=== PATIENT | female | born 1970 | race Caucasian/White ===

== ENCOUNTER 2022-12-18 22:24 | Emergency (ER) | payer OTHER ==
[2022-12-18 22:30] VITALS: TEMP 98
[2022-12-18] MEDS ORDERED: BABY ASPIRIN 81 MG CHEW PO ONE (22:41)
[2022-12-18] MEDS ORDERED: MORPHINE SULFATE 4 MG INJ IV ONE (22:42)
[2022-12-18] MEDS ORDERED: Zofran 4 MG/2 ML VIAL IV ONE (22:42)
[2022-12-18] MEDS ORDERED: Zofran 4 MG/2 ML VIAL ONE (22:48)
[2022-12-18] MEDS ORDERED: BABY ASPIRIN 81 MG CHEW ONE (22:49)
[2022-12-18] MEDS ORDERED: MORPHINE SULFATE 4 MG INJ ONE (22:49)
[2022-12-18 23:15] LABS: Absolute Neutrophil Ct (ANC) 9.63 x10^3/uL (1.4-6.9); BASOPHIL % 0.4 % (0.0-0.4); Basophil (Absolute #) 0.07 x10^3/uL (0-0.4); Eosinophil % 0.7 % (0.00-5.0); Eosinophil (Absolute #) 0.11 x10^3/uL (0-0.5); Hematocrit 41.1 % (35-47); Hemoglobin 13.6 g/dL (12.0-16.0); IMMATURE GRAN # 0.05 x10^3u/L (0.00-0.03); IMMATURE GRAN % 0.3 % (0.00-0.4); Lymphocyte (Absolute #) 5.08 x10^3/uL (1.0-4.6); Mean Cell Volume 90.3 fL (78-100); Mean Corpuscular Hemoglobin 29.9 pg (26-32); Mean Corpuscular Hgb Concent. 33.1 g/dL (32-36); Monocyte (Absolute #) 0.92 x10^3/uL (0.0-1.3); Monocytes % 5.8 % (0.0-12.0); Neutrophil % 60.8 % (36.0-66.0); Platelet Count 206 x10^3/uL (150-450); Red Blood Count 4.55 x10^6/uL (4.1-5.4); Red Cell Distribution Width 14.1 % (11.5-14.0); White Blood Count 15.9 x10^3/uL (4.0-10.5)
--- NOTE | 2022-12-18 23:23 | ERPHSYRPT ---
- History of Present Illness Historian: patient, other () Exam Limitations: no limitations Patient Subjective Stated Complaint: pt states "I was walking the dog and my chest started hurting. I think it was my acid reflux so I took my medicine and it still is hurting." Triage Nursing Assessment: pt ambulatory to bed by self with slow steady gait, pt alert and oriented x3, skin pwd, pt c/o center chest pain that started around 2200 while patient was up and walking, pt has hx of GERD and and heart murmur, pt took her omeprazole around 2200, pt rating 8/10 pressure like pain in her chest, pt also c/o L lower arm numbness that started with the chest pain, pt holding chest in triage, in room with patient Physician History: 52 yo WF w mid-sternal chest pain x 1hour. Pain is substernal, burning, and 8/10. She denies radiation but has some associated L shoulder pain. Pain accompanied by nausea/diaphoresis wo vomiting/dyspnea. It is worse w deep breaths. Pt smokes <1ppd but denies CAD-HI/HTN/hyperlipidemia/DM. Cough/coryza /fever are all denied. Timing/Duration: other (1 hour) Activities at Onset: other (Showering) Quality: burning Location: substernal Chest Pain Radiation: no radiation Severity of Pain-Max: severe Severity of Pain-Current: severe Modifying Factors: Improves With: other (Worse w deep breaths) Associated Symptoms: nausea, diaphoresis Prior Chest Pain/Cardiac Workup: no prior chest pain Nitro Today/Relief: no nitro taken today Aspirin Treatment Today: no aspirin today Allergies/Adverse Reactions: No Known Drug Allergies Allergy (Verified 12/18/22 22:25) Home Medications: Omeprazole 20 mg PO DAILY 12/18/22 [History] Hx Tetanus, Diphtheria Vaccination/Date Given: No Hx Influenza Vaccination/Date Given: Yes Hx Pneumococcal Vaccination/Date Given: No Immunizations Up to Date: Yes Travel Risk - International Travel Have you traveled outside of the country in past 3 weeks: No - Coronavirus Screening Are you exhibiting any of the following symptoms?: No Close contact with a COVID-19 positive Pt in past 14-21 Days: No - Vaccine Status Have you recieved a Covid-19 vaccination: Yes Healthcare Consulting Manager: Moderna - Vaccination Dates Date of 2cond Vaccination (if applicable): 2020 - Review of Systems Constitutional: No Symptoms Eyes: No Symptoms Ears, Nose, & Throat: No Symptoms Respiratory: No Symptoms Cardiac: No Symptoms, Chest Pain Abdominal/Gastrointestinal: No Symptoms, Nausea Genitourinary Symptoms: No Symptoms Musculoskeletal: No Symptoms Skin: No Symptoms Neurological: No Symptoms Psychological: No Symptoms Endocrine: No Symptoms Hematologic/Lymphatic: No Symptoms Immunological/Allergic: No Symptoms - Past Medical History GI Medical History: GERD Other Medical History: heart murmur - Past Surgical History Past Surgical History: Yes Neuro Surgical History: No Pertinent History Cardiac: No Pertinent History Respiratory: No Pertinent History Gastrointestinal: No Pertinent History Genitourinary: No Pertinent History Musculoskeletal: No Pertinent History Female Surgical History: No Pertinent History Other Surgical History: cyst removal - Social History Smoking Status: Current every day smoker Exposure to second hand smoke: No Drug Use: none Patient Lives Alone: No - Nursing Vital Signs Nursing Vital Signs: Initial Vital Signs Temperature 98.0 F 12/18/22 22:25 Pulse Rate 78 12/18/22 22:25 Respiratory Rate 18 12/18/22 22:25 Blood Pressure 128/90 12/18/22 22:25 O2 Sat by Pulse Oximetry 100 12/18/22 22:25 Pain Scale Pain Intensity 2 WNL - Physical Exam General Appearance: no apparent distress Eye Exam: PERRL/EOMI, eyes nml inspection Ears, Nose, Throat Exam: normal ENT inspection, TMs normal, pharynx normal, moist mucous membranes Neck Exam: normal inspection, non-tender, supple, full range of motion, No meningismus, No mass, No Brudzinski, No Kernig's Respiratory Exam: normal breath sounds, lungs clear, airway intact, No chest tenderness, No respiratory distress Cardiovascular Exam: regular rate/rhythm, normal heart sounds, normal peripheral pulses, capillary refill <2 sec, No murmur Gastrointestinal/Abdomen Exam: soft, normal bowel sounds, No tenderness Back Exam: normal inspection, normal range of motion, No CVA tenderness, No vertebral tenderness Extremity Exam: normal inspection, normal range of motion Neurologic Exam: alert, oriented x 3, cooperative, monotype caster II-XII nml as tested, normal mood/affect, nml cerebellar function, nml station & gait, sensation nml Skin Exam: normal color, warm, dry, No rash Lymphatic Exam: No adenopathy SpO2 Interpretation: normal SpO2: 100 O2 Delivery: Oxymizer - Course Nursing assessment & vital signs reviewed: Yes EKG Interpreted by Me: RATE (NSR/Rate 82/Normal QT-QTc/Low voltage/No acute ST segment changes/Artifact/EKG #2 NSR/Rate 64/Normal QT-QTc/Low voltage/No acute ST segment changes) - Radiology Exams Chest X-ray Interpretation: Interpreted by me (NAD) Ordered Tests: Active Orders 24 hr Category Date Time Status EKG-ER Only STAT Care 12/19/22 02:10 Completed CHEST 1 VIEW (PORTABLE) Stat Exams 12/18/22 22:36 Taken CBC W DIFF Stat Lab 12/18/22 22:30 Completed CMP Stat Lab 12/18/22 22:30 Completed D-DIMER QUANTITATIVE Stat Lab 12/19/22 00:01 Completed NT PRO BNPII Stat Lab 12/18/22 22:30 Completed PROTIME WITH INR Stat Lab 12/18/22 22:30 Completed PTT Q4H Lab 12/19/22 06:30 Ordered PTT Q4H Lab 12/19/22 10:30 Ordered PTT Q4H Lab 12/19/22 14:30 Ordered PTT Q4H Lab 12/19/22 18:30 Ordered PTT Q4H Lab 12/19/22 22:30 Ordered PTT Stat Lab 12/18/22 22:30 Completed TROPONIN Q4H Lab 12/18/22 22:30 Completed TROPONIN Q4H Lab 12/19/22 01:20 Completed TROPONIN Q4H Lab 12/19/22 06:45 Ordered Medication Summary Generic Name Dose Route Start Last Admin Trade Name Freq PRN Reason Stop Dose Admin Heparin Sodium/Dextrose 25,000 units in 250 mls @ 8.28 mls/hr 12/19/22 02:30 12/19/22 02:40 Heparin 25,000 Units/D5w: Use Order Set Marielos IV 01/18/23 02:29 12 u nits/kg/hr .Q24H WOLF 8.28 mls/hr Administration Protocol 12 UNITS/KG/HR Discontinued Medications Generic Name Dose Route Start Last Admin Trade Name Freq PRN Reason Stop Dose Admin Aspirin 324 mg 12/18/22 22:41 12/18/22 22:50 Aspirin 81 Mg Tab.Chew PO 12/18/22 22:42 324 mg STAT ONE Administration Aspirin Confirm 12/18/22 22:49 Aspirin 81 Mg Tab.Chew Administered 12/18/22 22:50 Dose 324 mg .ROUTE .STK-MED ONE Heparin Sodium (Beef Lung) 5,000 unit 12/19/22 02:19 12/19/22 04:38 Heparin 5000 Units/0.5 Ml 5,000 Unit/0.5 Ml Syr IV 12/19/22 02:20 Not Given STAT ONE Heparin Sodium (Beef Lung) 4,100 unit 12/19/22 02:21 12/19/22 02:38 Heparin 5000 Units/0.5 Ml 5,000 Unit/0.5 Ml Syr 60 unit/kg (4100 unit) 12/19/22 02:22 4,100 unit IV Administration STAT STA Heparin Sodium (Beef Lung) Confirm 12/19/22 02:35 Heparin 5000 Units/0.5 Ml 5,000 Unit/0.5 Ml Syr Administered 12/19/22 02:36 Dose 5,000 unit .ROUTE .STK-MED ONE Morphine Sulfate 4 mg 12/18/22 22:42 12/18/22 22:50 Morphine Sulfate 4 Mg/Ml Injection IV 12/18/22 22:43 4 mg STAT ONE Administration Morphine Sulfate Confirm 12/18/22 22:49 Morphine Sulfate 4 Mg/Ml Injection Administered 12/18/22 22:50 Dose 4 mg .ROUTE .STK-MED ONE Morphine Sulfate 4 mg 12/19/22 04:12 12/19/22 04:38 Morphine Sulfate 4 Mg/Ml Injection IV 12/19/22 04:13 4 mg STAT ONE Administration Morphine Sulfate Confirm 12/19/22 04:37 Morphine Sulfate 4 Mg/Ml Injection Administered 12/19/22 04:38 Dose 4 mg .ROUTE .STK-MED ONE Ondansetron HCl 4 mg 12/18/22 22:42 12/18/22 22:50 Ondansetron Hcl 4 Mg/2 Ml Vial IV 12/18/22 22:43 4 mg STAT ONE Administration Ondansetron HCl Confirm 12/18/22 22:48 Ondansetron Hcl 4 Mg/2 Ml Vial Administered 12/18/22 22:49 Dose 4 mg .ROUTE .STK-MED ONE Lab/Rad Data: Laboratory Result Diagrams 12/18/22 22:30 12/18/22 22:30 Laboratory Results 12/19/22 12/19/22 12/19/22 Range/Units 01:20 00:30 00:01 WBC (4.0-10.5) x10^3/uL RBC (4.1-5.4) x10^6/uL Hgb (12.0-16.0) g/dL Hct (35-47) % MCV (78-100) fL MCH (26-32) pg MCHC (32-36) g/dL RDW (11.5-14.0) % Plt Count (150-450) x10^3/uL MPV (7.5-11.0) fL Gran % (36.0-66.0) % Immature Gran % (Auto) (0.00-0.4) % Nucleat RBC Rel Count (0.00-0.1) % Eos # (Auto) (0-0.5) x10^3/uL Immature Gran # (Auto) (0.00-0.03) x10^3u/L Absolute Lymphs (auto) (1.0-4.6) x10^3/uL Absolute Monos (auto) (0.0-1.3) x10^3/uL Absolute Nucleated RBC (0.00-0.01) x10^3u/L Lymphocytes % (24.0-44.0) % Monocytes % (0.0-12.0) % Eosinophils % (0.00-5.0) % Basophils % (0.0-0.4) % Absolute Granulocytes (1.4-6.9) x10^3/uL Basophils # (0-0.4) x10^3/uL PT (9.4-12.5) SECONDS INR (0.8-3.0) APTT (25.1-36.5) SECONDS D-Dimer 0.22 (0.0-0.50) mg/L Sodium (137-145) mmol/L Potassium (3.5-5.1) mmol/L Chloride (98-107) mmol/L Carbon Dioxide (22-30) mmol/L Anion Gap (5-15) MEQ/L BUN (7-17) mg/dL Creatinine (0.52-1.04) mg/dL Estimated GFR ML/MIN Glucose (74-106) mg/dL Calcium (8.4-10.2) mg/dL Total Bilirubin (0.2-1.3) mg/dL AST (14-36) U/L ALT (0-35) U/L Alkaline Phosphatase (38-126) U/L Troponin I 0.083 H* (0.000-0.034) ng/mL NT-Pro-B Natriuret Pep (<300) pg/mL Serum Total Protein (6.3-8.2) g/dL Albumin (3.5-5.0) g/dL Influenza Type A Ag NEGATIVE (NEGATIVE) Influenza Type B Ag NEGATIVE (NEGATIVE) RSV (PCR) NEGATIVE (NEGATIVE) SARS-CoV-2 (PCR) NEGATIVE (NEGATIVE) Slides for Path Review 12/18/22 12/18/22 12/18/22 Range/Units 22:30 22:30 22:30 WBC (4.0-10.5) x10^3/uL RBC (4.1-5.4) x10^6/uL Hgb (12.0-16.0) g/dL Hct (35-47) % MCV (78-100) fL MCH (26-32) pg MCHC (32-36) g/dL RDW (11.5-14.0) % Plt Count (150-450) x10^3/uL MPV (7.5-11.0) fL Gran % (36.0-66.0) % Immature Gran % (Auto) (0.00-0.4) % Nucleat RBC Rel Count (0.00-0.1) % Eos # (Auto) (0-0.5) x10^3/uL Immature Gran # (Auto) (0.00-0.03) x10^3u/L Absolute Lymphs (auto) (1.0-4.6) x10^3/uL Absolute Monos (auto) (0.0-1.3) x10^3/uL Absolute Nucleated RBC (0.00-0.01) x10^3u/L Lymphocytes % (24.0-44.0) % Monocytes % (0.0-12.0) % Eosinophils % (0.00-5.0) % Basophils % (0.0-0.4) % Absolute Granulocytes (1.4-6.9) x10^3/uL Basophils # (0-0.4) x10^3/uL PT 9.8 (9.4-12.5) SECONDS INR 0.89 (0.8-3.0) APTT 23.6 L (25.1-36.5) SECONDS D-Dimer (0.0-0.50) mg/L Sodium 136 L (137-145) mmol/L Potassium 3.6 (3.5-5.1) mmol/L Chloride 105 (98-107) mmol/L Carbon Dioxide 22 (22-30) mmol/L Anion Gap 13.5 (5-15) MEQ/L BUN 16 (7-17) mg/dL Creatinine 1.04 (0.52-1.04) mg/dL Estimated GFR 59.6 ML/MIN Glucose 148 H (74-106) mg/dL Calcium 8.8 (8.4-10.2) mg/dL Total Bilirubin 0.40 (0.2-1.3) mg/dL AST 42 H (14-36) U/L ALT 16 (0-35) U/L Alkaline Phosphatase 100 (38-126) U/L Troponin I < 0.012 (0.000-0.034) ng/mL NT-Pro-B Natriuret Pep 111 (<300) pg/mL Serum Total Protein 6.8 (6.3-8.2) g/dL Albumin 4.2 (3.5-5.0) g/dL Influenza Type A Ag (NEGATIVE) Influenza Type B Ag (NEGATIVE) RSV (PCR) (NEGATIVE) SARS-CoV-2 (PCR) (NEGATIVE) Slides for Path Review 12/18/22 Range/Units 22:30 WBC 15.9 H (4.0-10.5) x10^3/uL RBC 4.55 (4.1-5.4) x10^6/uL Hgb 13.6 (12.0-16.0) g/dL Hct 41.1 (35-47) % MCV 90.3 (78-100) fL MCH 29.9 (26-32) pg MCHC 33.1 (32-36) g/dL RDW 14.1 H (11.5-14.0) % Plt Count 206 (150-450) x10^3/uL MPV 12.0 H (7.5-11.0) fL Gran % 60.8 (36.0-66.0) % Immature Gran % (Auto) 0.3 (0.00-0.4) % Nucleat RBC Rel Count 0.0 (0.00-0.1) % Eos # (Auto) 0.11 (0-0.5) x10^3/uL Immature Gran # (Auto) 0.05 H (0.00-0.03) x10^3u/L Absolute Lymphs (auto) 5.08 H (1.0-4.6) x10^3/uL Absolute Monos (auto) 0.92 (0.0-1.3) x10^3/uL Absolute Nucleated RBC 0.00 (0.00-0.01) x10^3u/L Lymphocytes % 32.0 (24.0-44.0) % Monocytes % 5.8 (0.0-12.0) % Eosinophils % 0.7 (0.00-5.0) % Basophils % 0.4 (0.0-0.4) % Absolute Granulocytes 9.63 H (1.4-6.9) x10^3/uL Basophils # 0.07 (0-0.4) x10^3/uL PT (9.4-12.5) SECONDS INR (0.8-3.0) APTT (25.1-36.5) SECONDS D-Dimer (0.0-0.50) mg/L Sodium (137-145) mmol/L Potassium (3.5-5.1) mmol/L Chloride (98-107) mmol/L Carbon Dioxide (22-30) mmol/L Anion Gap (5-15) MEQ/L BUN (7-17) mg/dL Creatinine (0.52-1.04) mg/dL Estimated GFR ML/MIN Glucose (74-106) mg/dL Calcium (8.4-10.2) mg/dL Total Bilirubin (0.2-1.3) mg/dL AST (14-36) U/L ALT (0-35) U/L Alkaline Phosphatase (38-126) U/L Troponin I (0.000-0.034) ng/mL NT-Pro-B Natriuret Pep (<300) pg/mL Serum Total Protein (6.3-8.2) g/dL Albumin (3.5-5.0) g/dL Influenza Type A Ag (NEGATIVE) Influenza Type B Ag (NEGATIVE) RSV (PCR) (NEGATIVE) SARS-CoV-2 (PCR) (NEGATIVE) Slides for Path Review YES - Progress Progress: improved Progress Note: 12/19/22 02:[address] [facility] and vital signs reviewed No food or housing insecurities noted All lab results reviewed and shared w pt CXR read in ER and shared w pt 324mg ASA po/4mg IV MSO4 w marked improvement in pain Heparin weight based protocol bolus/drip 12/19/22 03:43 EMS REFUSED TO TRANSFER PT UNTIL 7AM 12/19/22 05:07 upset that pt can not be transferred until 7AM Called hospital [facility], Radha Lilly, and explained situation. I was referred Jorge Rodríguez who stated that he would try to find a partner for transfer. 12/19/22 06:00 Pt stable when EMS assumed care for transport Counseled pt/family regarding: lab results, diagnosis, rad results, smoking cessation Medical Desision Making - Independent Historian Additional History obtained from: Spouse - Diagnostic Testing Diagnostic test were ordered, analyzed, and reviewed by me: Yes Radiological Interpretation: Interpreted by me - Risk of complications The pt has a high risk of morbidity or mortality based on: Drug therapy re quiring intensive monitoring for toxicity - Departure Departure Disposition: Transfer Clinical Impression: NSTEMI (non-ST elevated myocardial infarction) Condition: Stable Critical Care Time: Yes Critical Care Time(excluding separately billable procedures): Critical 30-74 mins Referrals: OSCAR SOLIS NP [NON-STAFF PHY W/O PRIVILEGES] - Follow up/PCP as directed Instructions: Heart Attack (DC)
[2022-12-18 23:35] LABS: INR 0.89 (0.8-3.0); PROTIME 9.8 SECONDS (9.4-12.5); PTT 23.6 SECONDS (25.1-36.5)
[2022-12-18 23:43] LABS: ALBUMIN 4.2 g/dL (3.5-5.0); ANION GAP 13.5 MEQ/L (5-15); BILIRUBIN,TOTAL 0.4 mg/dL (0.2-1.3); Calcium 8.8 mg/dL (8.4-10.2); Creatinine 1 1.04 mg/dL (0.52-1.04); EST GLOMERULAR FILTRATION RATE 59.6 ML/MIN; Potassium 3.6 mmol/L (3.5-5.1); Total Protein 6.8 g/dL (6.3-8.2)
[2022-12-19 01:19] LABS: INFLUENZA A NEGATIVE (NEGATIVE); INFLUENZA B NEGATIVE (NEGATIVE); RESPIRATORY SYNCTIAL VIRUS NEGATIVE (NEGATIVE); SARS-CoV-2 Xpert Express NEGATIVE (NEGATIVE)
[2022-12-19] MEDS ORDERED: HEPARIN 5000 UNITS/0.5 ML (HIGH RISK MED) IV ONE (02:19)
[2022-12-19] MEDS ORDERED: HEPARIN 5000 UNITS/0.5 ML (HIGH RISK MED) IV STA (02:21)
[2022-12-19] MEDS ORDERED: Heparin 25,000 units/D5W: USE ORDER SET PROTO 25,000 UNITS/250 ML BAG IV SCH (02:30)
[2022-12-19] MEDS ORDERED: HEPARIN 5000 UNITS/0.5 ML (HIGH RISK MED) ONE (02:35)
[2022-12-19] MEDS ORDERED: Heparin 25,000 units/D5W: USE ORDER SET PROTO 25,000 UNITS/250 ML BAG IV ONE (02:35)
[2022-12-19 02:38] VITALS: O2SAT 100
[2022-12-19 02:59] LABS: Slide Review 1 YES
[2022-12-19] MEDS ORDERED: MORPHINE SULFATE 4 MG INJ IV ONE (04:12)
[2022-12-19] MEDS ORDERED: MORPHINE SULFATE 4 MG INJ ONE (04:37)
[2022-12-19 05:54] VITALS: BP 129/69
[2022-12-19 05:56] VITALS: PULSE 64; RESP 15
--- NOTE | 2022-12-19 08:37 | XRAY ---
Indication: Chest pain. Comparison: None Portable chest demonstrates normal heart, lungs, and bony thorax.
== END 2022-12-19 05:54 | disposition short-term general hospital (02) ==
LOC: ED 22:24
DX: I21.4 Non-ST elevation (NSTEMI) myocardial infarction (principal); R77.8 Other specified abnormalities of plasma proteins; R07.9 Chest pain, unspecified; R11.0 Nausea; Z72.0 Tobacco use
CPT/HCPCS: 0241U; 36415; 71045; 80053; 83880; 84484; 85025; 85379; 85610; 85730; 93005; 96365; 96366; 96374; 96375; 96376; 99285; 99291; J1644; J2270; J2405; A9270-GY